=== PATIENT | female | born 1985 | race Hispanic/Latino ===

== ENCOUNTER 2019-05-31 01:42 | Emergency (ER) | payer SELFPAY ==
[2019-05-31 02:24] LABS: Bilirubin Negative (Negative); Blood, Urine 2+ (Negative); Clarity Clear (Clear); Glucose, Urine (Dipstick) Normal (Negative); Leukocyte Negative Leu/uL (Negative); Nitrite Negative (Negative); Protein, Urine (Dipstick) Negative (Neg-Trace); RBC/HPF 0-3 HPF (0-3); Squamous Epithelial 0-3 HPF (0-3); Urobilinogen Normal mg/dL (Less than 2); WBC/HPF 0-3 HPF (0-3)
[2019-05-31 02:25] LABS: Pregnancy Test - Urine (BHCG) Negative (Negative); Pregu Control Bar Appear? YES (CONTROL BAR); Specific Gravity 1.003 (1.002-1.036)
[2019-05-31 02:26] LABS: Pregu Control Background? CLEAR/WHITE (CLR/WHITE)
[2019-05-31 02:32] LABS: ALT (SGPT) 33 U/L (8-55); AST (SGOT) 31 U/L (5-34); Albumin 4.4 g/dL (3.5-5.0); Alkaline Phosphatase 65 U/L (40-150); Anion Gap 12 mmol/L (10-20); BUN (Urea Nitrogen) 9 mg/dL (7.0-18.7); Bilirubin, Total 0.5 mg/dL (0.2-1.2); Calc. Creatinine Clearance 0 mL/min (70-130); Calcium 9.5 mg/dL (7.8-10.44); Carbon Dioxide 23 mmol/L (22-29); Chloride 106 mmol/L (98-107); Estimated GFR-MDRD 77; Glucose 97 mg/dL (70-105); Lipase 62 U/L (8-78); Potassium 3.6 mmol/L (3.5-5.1); Protein, Total 7.4 g/dL (6.0-8.3); Sodium 137 mmol/L (136-145)
[2019-05-31 02:37] LABS: Bacteria/HPF 1+ HPF (None Seen)
[2019-05-31] MEDS ORDERED: Morphine 4 MG/ML VIAL ONE ×2 (02:38→04:18)
[2019-05-31] MEDS ORDERED: Ketorolac Tromethamine 30 MG/ML VIAL ONE (04:18)
[2019-05-31] MEDS ORDERED: cefTRIAXone\\ROCEPHIN 2 GM VIAL ONE (06:23)
--- NOTE | 2019-05-31 08:09 | CT ---
CT ABDOMEN AND PELVIS WITHOUT IV CONTRAST: Date: 05/31/19 INDICATION: Right-sided flank pain. FINDINGS: There is a 6 mm stone in the distal right ureter, approximately 2 cm from the level of the right UVJ, causing mild right hydronephrosis. There is a tiny, 1-2 mm, calculus within the inferior pole of the right kidney. There is mild fatty infiltration of the liver. The adrenal glands, pancreas, and spleen appear within normal limits. There are cystic abnormalities involving both adnexa. The rectum and perirectal soft tissues are unremarkable. No acute osseous abnormality is evident. IMPRESSION: 1. 6 mm stone within the distal right ureter causing mild right hydronephrosis. 2. Right nephrolithiasis. 3. Fatty liver. POS: BH
--- NOTE | 2019-05-31 08:19 | ULT ---
PRELIMINARY REPORT/[facility]/EMERGENCY AFTER HOURS PROCEDURE: EXAM: US Abdomen Limited, Right Upper Quadrant EXAM DATE/TIME: 05/31/2019 2:50 AM CLINICAL HISTORY: 34 years old, female; Pain; Other: RT flank TECHNIQUE: Imaging protocol: Real-time ultrasound of the abdomen with image documentation. Examination was focus ed on the right upper quadrant. COMPARISON: No relevant prior studies available. FINDINGS: Liver: Echogenic/fatty liver. No acute findings. No mass. Gallbladder: No gallstones. No significant gallbladder wall thickening or pericholecystic fluid. Negative Gutierres's sign. Possible tiny pericholecystic fluid. Common bile duct: Unremarkable. Pancreas: Limited visualization due to bowel gas. Right kidney: Mild hydronephrosis. No stones. No mass. Bilateral ureteral jets visualized. IMPRESSION: Mild right hydronephrosis. Possible tiny pericholecystic fluid. Echogenic/fatty liver. Thank you for allowing us to participate in the care of your patient. Dictated and Authenticated by: Joel Chow MD 05/31/2019 3:55 AM Central Time ([place] & [place]) FINAL REPORT EMERGENCY AFTER HOURS RIGHT UPPER QUADRANT ULTRASOUND: IMPRESSION: I agree with the preliminary report provided by Giovanni. 1. There is mild right hydronephrosis. 2. There is diffuse fatty infiltration of the liver. 3. Nonspecific small amount of fluid seen adjacent to the gallbladder. There is no sonographic Kayley y's sign reported. No intraluminal gallstones are noted. Remaining aspects of exam as above. POS: NICHOLAS
== END 2019-05-31 07:25 | disposition home or self-care (01) ==
LOC: ERS 01:42
DX: N13.2 Hydronephrosis with renal and ureteral calculous obstruction (principal); Z79.899 Other long term (current) drug therapy; Z79.84 Long term (current) use of oral hypoglycemic drugs
CPT/HCPCS: 36415; 74176; 76705; 80053; 81003; 81015; 81025; 83690; 96361; 96365; 96372; 96375; 96376; J0696; J1885; J2270

== ENCOUNTER 2020-01-25 10:13 | Emergency (ER) | payer SELFPAY ==
[2020-01-25 11:40] LABS: #Eosinphils 0.2 thou/uL (0.0-0.7); #Lymphocytes 2.2 thou/uL (1.20-3.40); #Monocytes 0.6 thou/uL (0.11-0.59); #Neutrophils 5.5 thou/uL (1.40-6.50); %Basophils 0.6 % (0.0-1.0); %Eosinophils 2.3 % (0.0-10.0); %Lymphocytes 25.5 % (21.0-51.0); %Monocytes 7.4 % (0.0-10.0); %Neutrophils 64.3 % (42.0-75.0); Hemoglobin 13.3 g/dL (12.0-16.0); Mean Corpuscular HGB CONC 33.2 g/dL (32.0-36.0); Mean Corpuscular Hemoglobin 30.1 pg (27.0-31.0); Mean Corpuscular Volume 90.7 fL (78.0-98.0); Mean Platelet Volume 7.7 fL (7.4-10.4); Platelet Count 243 thou/uL (130-400); RBC Distribution Width 12.7 % (11.5-14.5); Red Blood Cell (RBC) Count 4.43 mill/uL (4.20-5.40); White Blood Cell (WBC) Count 8.6 thou/uL (4.8-10.8)
--- NOTE | 2020-01-25 13:06 | ULT ---
US Pelvic Transvag History: Pain Comparison: None. Findings: Real-time grayscale, color, and spectral analysis of the pelvis was performed transabdomina l and transvaginal approach. There is an intrauterine gestational sac with mean sac diameter 0.99 cm, 5 week 5 day gestation. Ther e is a pole with crown rump length of 0.45 cm, 6 week 1 day gestation. Yolk sac measures 0.17 cm. heart rate documented at 10 1 bpm. Moderate adjacent subchorionic hemorrhage. Multiple cysts of the cervix. The ovaries are very large with numerous theca lutein cysts. Impression: 1. Viable intrauterine with average ultrasound age 6 weeks 0 day with estimated date of del jas September 19, 2020. 2. Given the relatively large adjacent subchorionic hemorrhage, close follow-up hCG and ultrasound is recommended. 3. Similar appearance of the enlarged bilateral ovaries with numerous theca lutein cysts. Differentia l is unchanged from the comparison examination.
== END 2020-01-25 13:42 | disposition home or self-care (01) ==
LOC: ERS 10:13
DX: O99.89 Other specified diseases and conditions complicating pregnancy, childbirth and the puerperium (principal); R10.30 Lower abdominal pain, unspecified; Z3A.01 Less than 8 weeks gestation of pregnancy
CPT/HCPCS: 36415; 76856; 84702; 85025

== ENCOUNTER 2020-05-14 10:18 | Inpatient (IN) | payer BC, SELFPAY ==
[~2020-05-14 10:18] MED LIST: Bupivacaine 0.25% HCL 30 ML VIAL ONE; Bupivacaine PF 0.5% 30 ML VIAL ONE
[2020-05-14 11:02] VITALS: BMI 30.7
[2020-05-14] MEDS ORDERED: Acetaminophen 500 MG TAB PO SCH (11:45)
--- NOTE | 2020-05-14 12:05 | PDOC.LDHP ---
Labor and Delivery H&P Chief complaint: abdominal pain, other (Vaginal bleeding) HPI: 35 yo @ 21.1 wks by LMP c/w 6wk bentley presents to L&D with complaint of abdominal pain and vaginal bleeding. Pt states that the abdominal pain started 3 days ago. Came on gradually, has been intermittent, feels sharp, and is getting more severe, especially today. States this morning she noticed bleeding when she wiped after peeing. About 30 minutes later noticed more vaginal bleeding that she related to like the start of her period. Denies any complications with her to this point. States her last US was last month and she was not informed of any abnormal findings. Denies any fever, chills, N/V/D/C, dysuria, LOF. Reports nml FM. Pt was dx COVID-19 positive on 04/26/20. She was asymptomatic on 05/03/20. Denies any continued symptoms similar to then. Current gestational age (weeks): 21 (1) Due date: 09/23/20 Dating criteria: last menstrual period, first trimester ultrasound Grav: 1 Para: 0 Current complications: none Abnormal US findings: Yes (Large subchorionic hem. on 6wk US. numerous thecal cysts, large ovaries) Current medications: pre-mary jo vitamins Previous surgical history: none Allergies/Adverse Reactions: Allergies Allergy/AdvReac Type Severity Reaction Status Date / Time No Known Allergies Allergy Verified 05/14/20 11:01 Social history: none - Physical Exam Vital signs reviewed and normal: yes General: other (tearful) Heart: RRR Lungs: nonlabored breathing Abdomen: other (diffuse tenderness to palpation, no guarding, rigidity) Extremeties: normal range of motion FHT: category 1 (Not able to obtain tracing due to GA. FHR 135) - Assessment L&D Assessment: labor 2nd Trimester Vaginal Bleeding Labor at Non-viable Gestational Age - Plan Plan: admit to L&D -: 2nd Trimester Vaginal Bleeding with Labor at Nonviable Gestational Age - CBC: -WBC 14.6 with mild left shift - CMP: -Mildly suppressed bicarb, likely related to mild hyperventilation from abdominal pain with compensation - UA: - No gross infection noted - US: -20 week, 5 day gestation by ultrasound. -Images of the cervix show open internal os with funneling seen into the internal os. -Type/screen: A+ -No rhogam indicated with bleeding - Elevated WBC without any other indications of active infection, will continue to monitor for changes in vitals and sx - Pt received 1L LR bolus and 1g Tylenol - Sterile Spec: Dilated cervix with protruding membranes - SVE: Difficult to fully assess due to membranes, dilation noted with complete effacement, -2 station. Balotable membranes - Discussed with pt her options of transfer to [place] vs inpt here for labor progression monitoring and pt wishes to remain here with expectant management - We offered to have NICU provider speak with pt regarding her babies poor prognosis to answer any questions she had but she deferred - Pt expressed understanding that if she were to deliver prior to 23 weeks there would be nothing we could do to resuscitate the baby Plan: Due to labor at non viable gestational age will plan for admit and monitor for labor progression. The patient was evaluated with my attending, Dr. Nina Ramirez. We discussed the above patient and treatment plan with which she agrees. Luis Armando Egan PGY2
[2020-05-14 12:11] LABS: #Eosinphils 0.1 thou/uL (0.0-0.7); #Lymphocytes 1.8 thou/uL (1.20-3.40); #Monocytes 0.8 thou/uL (0.11-0.59); #Neutrophils 11.9 thou/uL (1.40-6.50); %Basophils 0.2 % (0.0-1.0); %Eosinophils 0.4 % (0.0-10.0); %Lymphocytes 12.3 % (21.0-51.0); %Monocytes 5.5 % (0.0-10.0); %Neutrophils 81.7 % (42.0-75.0); Hemoglobin 13.8 g/dL (12.0-16.0); Mean Corpuscular HGB CONC 34.1 g/dL (32.0-36.0); Mean Corpuscular Hemoglobin 30.1 pg (27.0-31.0); Mean Corpuscular Volume 88.3 fL (78.0-98.0); Mean Platelet Volume 8.3 fL (7.4-10.4); Platelet Count 304 thou/uL (130-400); RBC Distribution Width 14.4 % (11.5-14.5); Red Blood Cell (RBC) Count 4.57 mill/uL (4.20-5.40); White Blood Cell (WBC) Count 14.6 thou/uL (4.8-10.8)
[2020-05-14] MEDS ORDERED: Lactated Ringer's 1,000 ML IV SCH (12:15)
[2020-05-14 12:23] LABS: Bacteria/HPF None Seen HPF (None Seen); Bilirubin Negative (Negative); Blood, Urine 2+ (Negative); Clarity Turbid (Clear); Glucose, Urine (Dipstick) Normal (Negative); Leukocyte Negative Leu/uL (Negative); Nitrite Negative (Negative); Protein, Urine (Dipstick) Negative (Neg-Trace); RBC/HPF Greater than 50 HPF (0-3); Urobilinogen Normal mg/dL (Less than 2)
[2020-05-14 12:35] LABS: ALT (SGPT) 22 U/L (8-55); AST (SGOT) 19 U/L (5-34); Albumin 3.7 g/dL (3.5-5.0); Alkaline Phosphatase 79 U/L (40-110); Anion Gap 13 mmol/L (10-20); BUN (Urea Nitrogen) 7 mg/dL (7.0-18.7); Bilirubin, Total 0.3 mg/dL (0.2-1.2); Calc. Creatinine Clearance 171 mL/min (70-130); Calcium 9.2 mg/dL (7.8-10.44); Carbon Dioxide 18 mmol/L (22-29); Chloride 110 mmol/L (98-107); Estimated GFR-MDRD Greater than 90; Globulin 3.4 g/dL (2.4-3.5); Glucose 89 mg/dL (70-105); Potassium 3.7 mmol/L (3.5-5.1); Protein, Total 7.1 g/dL (6.0-8.3); Sodium 137 mmol/L (136-145)
[2020-05-14] MEDS ORDERED: Misoprostol 200 MCG TAB PR PRN (12:48)
[2020-05-14] MEDS ORDERED: Ibuprofen 800 MG TAB PO PRN (12:48)
[2020-05-14] MEDS ORDERED: hydrALAZINE 20 MG/ML VIAL SLOW IVP PRN (12:48)
[2020-05-14] MEDS ORDERED: Lidocaine 1% (PF) 30 ML VIAL SC PRN (12:48)
[2020-05-14] MEDS ORDERED: Acetaminophen 500 MG TAB PO PRN (12:48)
[2020-05-14] MEDS ORDERED: NS / Oxytocin 40 units/1000ml 1,000 ML IV PRN (12:48)
[2020-05-14] MEDS ORDERED: Promethazine HCl 25 MG/ML VIAL IM PRN (12:48)
[2020-05-14] MEDS ORDERED: Ondansetron PF 4 MG/2 ML Vial IVP PRN (12:48)
[2020-05-14] MEDS ORDERED: Methylergonovine 0.2 MG/ML VIAL IM PRN (12:48)
[2020-05-14] MEDS ORDERED: Carboprost 250 MCG/ML AMP IM PRN (12:48)
[2020-05-14] MEDS: Butorphanol Tartrate 1 MG/ML VIAL SLOW IVP PRN ×4 (13:31→21:07)
--- NOTE | 2020-05-14 13:34 | ULT ---
PELVIC ULTRASOUND: 05/14/20 Transabdominal ultrasound of the pelvis performed. INDICATIONS: Vaginal bleeding, second trimester. There is a viable intrauterine . Gestational age by ultrasound is 20 weeks, 5 days. Biometry measurements are consistent. heart rate: 145 beats per minute. Placenta: Anterior. Presentation: Transverse. Amniotic fluid: Adequate. QUINN recorded at 13 cm. Images of the cervix show funneling of the internal os. The internal os appears open. anatomy imaged include intracranial contents, four chamber heart, stomach, kidneys, cord insert ion, bladder, spine, extremities and three vessel cord. No abnormality identified. IMPRESSION: 1. 20 week, 5 day gestation by ultrasound. 2. Images of the cervix show open internal os with funneling seen into the internal os. POS: AGW
[2020-05-14] MEDS: Lactated Ringer's 1,000 ML IV SCH ×2 (18:00→21:00)
[2020-05-14] MEDS ORDERED: HYDROcodone/Acetaminophen 7.5/325 mg Tablet PO SCH (21:30)
[2020-05-15] MEDS: Morphine 4 MG/ML VIAL SLOW IVP PRN ×4 (00:27→09:59)
[2020-05-15] MEDS ORDERED: Cyclobenzaprine 10 MG TAB PO SCH (00:30)
[2020-05-15] MEDS: Lactated Ringer's 1,000 ML IV SCH ×4 (04:28→23:59)
--- NOTE | 2020-05-15 07:13 | PDOC.LDPN ---
Labor & Delivery Progress Note - Subjective Subjective: other (Having back, bladder, and uterine pain per pt. Pain rx has had mild-moderate benefit. Denies any loss of fluid. Is having some mild vaginal bleeding. Denies fever, chills, N/V.) - Objective Vital signs reviewed and normal: yes General: resting Uterine fundus: tender to palpation (diffusely, uterus not tetonic) SVE: Deferred due to labor with protruding membranes Plan: continue plan of care -: Labor at Non-viable Gestational Age - Pt complains of continued back pain and bladder distention - noting difficulty with urinating - will placed cummings to decompress as pt currently strict bed rest - pt does have history of nephrolithiasis and states that her back pain feels similar to pain she experienced with this in the past - if bladder decompression does not relieve her pain may need to consider US to identify stone/hydronephrosis - unfortunately in her current situation this is likely little intervention that could be offered - will continue to attempt to control her pain with as minimal opioids as necessary - Cervical dilation and protruding membranes without notable loss of fluid at this point - Deferring any digital cervical exams due to exposed membranes - Pt would benefit from r/o any intra-vaginal infections that could be contributing - Sterile spec to visualize cervical dilation and GC/CT, VP3 today would be advisable Luis Armando Egan PGY2
[2020-05-15 07:34] LABS: #Lymphocytes 2.5 thou/uL (1.20-3.40); #Neutrophils 11.1 thou/uL (1.40-6.50); %Basophils 0.3 % (0.0-1.0); %Eosinophils 0.2 % (0.0-10.0); %Monocytes 6.8 % (0.0-10.0); %Neutrophils 75.8 % (42.0-75.0); Hemoglobin 12.8 g/dL (12.0-16.0); Mean Corpuscular HGB CONC 33.5 g/dL (32.0-36.0); Mean Corpuscular Hemoglobin 30.1 pg (27.0-31.0); Mean Corpuscular Volume 89.8 fL (78.0-98.0); Mean Platelet Volume 8.2 fL (7.4-10.4); Platelet Count 255 thou/uL (130-400); RBC Distribution Width 14.2 % (11.5-14.5); Red Blood Cell (RBC) Count 4.27 mill/uL (4.20-5.40); White Blood Cell (WBC) Count 14.7 thou/uL (4.8-10.8)
[2020-05-15 07:45] LABS: ALT (SGPT) 20 U/L (8-55); AST (SGOT) 20 U/L (5-34); Albumin 3.3 g/dL (3.5-5.0); Alkaline Phosphatase 75 U/L (40-110); Anion Gap 14 mmol/L (10-20); BUN (Urea Nitrogen) 6 mg/dL (7.0-18.7); Bilirubin, Total 0.5 mg/dL (0.2-1.2); Calc. Creatinine Clearance 186 mL/min (70-130); Calcium 9.1 mg/dL (7.8-10.44); Carbon Dioxide 18 mmol/L (22-29); Chloride 107 mmol/L (98-107); Estimated GFR-MDRD Greater than 90; Globulin 3.2 g/dL (2.4-3.5); Glucose 79 mg/dL (70-105); Potassium 3.6 mmol/L (3.5-5.1); Protein, Total 6.5 g/dL (6.0-8.3); Sodium 135 mmol/L (136-145)
[2020-05-15] MEDS ORDERED: Fentanyl 4 mcg/Bup 0.1% Cadd 100 ML ONE ×2 (11:03→22:05)
[2020-05-15] MEDS ORDERED: Morphine 4 MG/ML VIAL SLOW IVP SCH (11:15)
[2020-05-15] MEDS ORDERED: EPHEDRINE 25 MG/5 ML SYRINGE SLOW IVP PRN (12:24)
[2020-05-15] MEDS ORDERED: Acetaminophen 325 MG TAB PO PRN (12:24)
[2020-05-15] MEDS ORDERED: Ondansetron PF 4 MG/2 ML Vial IVP PRN (12:24)
[2020-05-15] MEDS ORDERED: Naloxone HCl 0.4 mg/ml Vial IVP PRN ×2 (12:24)
[2020-05-15] MEDS ORDERED: Lactated Ringer's 500 ML IV PRN (12:24)
[2020-05-15] MEDS ORDERED: Promethazine HCl 25 MG/ML VIAL IM PRN (12:24)
[2020-05-15] MEDS ORDERED: Communication Order-Pharmacy FS SCH (12:30)
[2020-05-15] MEDS: diphenhydrAMINE 50 MG/ML VIAL IVP PRN (13:00)
--- NOTE | 2020-05-15 17:41 | PDOC.EVN ---
Event Note - Event Note Event Note: PT is a 35yo with an iup 21.2 days presenting with hourglassing membranes > 24hrs ago. There was some initial concern that she may be going into labor. however pt does not appear to have made any progress toward delivery. On ultrasound there is a foot passing through the cervix. On digital exam there is palpable cervix but difficult to feel the dilation due to the protruding bag. The patient on my exam when i came on duty today did not suggest labor. we dont see ctx on the monitor, the patient describes pain in her lower back that she says is reproducible with palapating knotted tissue parasacrally. When foot was palpated in the cervical os as the patient complaining of contractions the decision was made to offer an epidural to allow the pt to get some relief. 7hrs later we still have made no progress toward a labor picture. Transfer was offered to evaluate for possible cerclage vs staying and expectantly managing. . Pt accepted that option. A Dr Zane Johnson was called, an MFM with [facility], who has accepted her to evaluate for a possible cerclage placement. I have updated the patient and explained that there is not guarantee that this will be successful but that after an appropriate evaluation a cerclage will be performed if believed to be a viable option. PT has accepted these terms. Pt will go by ground tonight with plans for eval and possible cerclage in the morning. vitals 116/61 100 18 98.4 nad pt in [facility] fetus in [place] breech presentation with anterior placenta this afternoon.
[2020-05-15] MEDS: Fentanyl 4 mcg/Bupivacaine 0.1% Cassette 100 ML EPIDURAL SCH (23:56)
[2020-05-16] MEDS ORDERED: Fentanyl 4 mcg/Bup 0.1% Cadd 100 ML ONE ×3 (06:41→21:37)
[2020-05-16] MEDS: Lactated Ringer's 1,000 ML IV SCH ×2 (07:55→16:31)
--- NOTE | 2020-05-16 08:35 | PDOC.EVN ---
Event Note - Event Note Event Note: transfer driver care offered and accepted.
--- NOTE | 2020-05-16 09:01 | PRG ---
DATE OF SERVICE: 05/16/2020 SUBJECTIVE: The patient is a 35-year-old female, G1, P0 female with an intrauterine at 21 weeks and 2 days, now on hospital day 3. Attempts were made yesterday for the patient to be transferred to [place] for possible cerclage placement; however, patient was showing signs of labor, complaining of uterine contractions and vaginal bleeding. The transfer was halted. This morning on evaluation, patient remains now. Baby has two legs passing into the vaginal canal to the level of the hips with the buttocks at the level of the cervix. Family is requesting attempts for transfer to [place] now. We have explained given the gestational age of the baby at 21 weeks and 2 days. The transfer, at this point with these findings, would be quite difficult to obtain, but we will attempt to make contact with [place]. The patient is comfortable with an epidural. OBJECTIVE: VITAL SIGNS: This morning, blood pressure 111/61, heart rate of 100, respiratory rate of 16, temperature 98.6. GENERAL: She appears to be in no acute distress. She is otherwise alert, oriented, cooperative, and pleasant to interact with. MUSCULOSKELETAL: On cervical exam this morning, there is no palpable cervix anymore. The back feels more taut and on bedside ultrasound. Again, both legs are now kicking in the vaginal canal inside that hourglass membranes, but at the level of the cervix. ASSESSMENT AND PLAN: The patient is a 35-year-old G1, P0 female with an intrauterine at 21 weeks and 3 days with cervical incompetence and questionable labor progress. At this point, delivery is inevitable and anticipate that delivery later today at some point. The patient is comfortable and of note patient was diagnosed with Coronavirus on April 23, which may or may not have any bearing on today's findings, time will tell. Dr. Em, the oncoming physician and will be taking over management. Dr. Wakefield is the primary physician, who has deferred care to our decision making. Job ID: [id number]
--- NOTE | 2020-05-16 09:39 | PDOC.EVN ---
Event Note - Event Note Event Note: Received report from Dr. Finn this AM; 35 yo LAF G1 at 21 2/7 weeks with incompetent cevix now with BBOW and legs in bag per his exam this AM. has requested transfer to [place] this AM. Spoke with Dr. Cristina at [facility] just now. Transfer denied 2* to risk of delivery in route. I explained this to pt and via an hvac sales engineer, all questions answered. Plan: Cont. expectant management here. Pastoral Care has seen pt. per her request.
[2020-05-16] MEDS: diphenhydrAMINE 50 MG/ML VIAL IVP PRN (14:51)
[2020-05-16] MEDS: Fentanyl 4 mcg/Bupivacaine 0.1% Cassette 100 ML EPIDURAL SCH ×2 (14:52→21:44)
[2020-05-17] MEDS: Lactated Ringer's 1,000 ML IV SCH ×2 (00:22→10:16)
[2020-05-17] MEDS: Fentanyl 4 mcg/Bupivacaine 0.1% Cassette 100 ML EPIDURAL SCH (02:53)
--- NOTE | 2020-05-17 07:36 | PDOC.EVN ---
Event Note - Event Note Event Note: 21 3/7 weeks Just vomitted. SROM just now, clear fluid seen. VSS AF SVE= fetus palpated in vagina Anticipate immanent delivery.
[2020-05-17] MEDS ORDERED: Methylergonovine 0.2 MG/ML VIAL ONE (09:44)
[2020-05-17] MEDS ORDERED: Fentanyl 4 mcg/Bup 0.1% Cadd 100 ML ONE (10:02)
[2020-05-17] MEDS: Ibuprofen 800 MG TAB PO SCH (12:14)
[2020-05-18] MEDS: Ibuprofen 800 MG TAB PO SCH (00:05)
[2020-05-18] MEDS ORDERED: Ibuprofen 600 MG TAB PO PRN (07:39)
--- NOTE | 2020-05-18 07:46 | OP ---
DATE OF PROCEDURE: 05/17/2020 DELIVERY NOTE: The patient is a 35-year-old female, who delivered a nonviable female at 21 weeks and 4 days by a vaginal delivery on 05/17/2020 at 8:31 a.m. Weight was 380 g, Apgars were 3, 2, and 2. At time of delivery, infant was wrapped living and handed to mom for comfort and bonding. Placenta delivered about 2 hours later with the aid of 800 mcg of Cytotec, also spontaneously. There were no lacerations. Quantitative blood loss about 215 mL from time of delivery of the baby to delivery of the placenta. There were no lacerations. Dr. Finn is the delivering physician. Mother was stable in the room in the immediate . Infant about 1 hour later at 9:22. Prior to passing away at parent's request, table games supervisor was present. Job ID: [id number]
--- NOTE | 2020-05-18 09:46 | DIS ---
DATE OF ADMISSION: 05/14/2020 DATE OF DISCHARGE: 05/18/2020 ADMITTING DIAGNOSES: Back pain, intrauterine at 21 weeks, and bulging membranes. DISCHARGE DIAGNOSES: Back pain, intrauterine at 21 weeks, and bulging membranes with previable delivery and possible cervical incompetence. HOSPITAL COURSE: The patient is a 35-year-old, G1, now P1 female, who presented to Labor and Delivery at 21 weeks and 2 days with pain and bulging membranes. Attempts were made to transfer the patient out for evaluation of possible cerclage; however, the patient continued to have signs and symptoms of onset of labor with abdominal cramping and some vaginal bleeding and discharge was abandoned. The patient ultimately delivered a previable female . For complete details, please refer to the delivery note. This process occurred over two days, during much of which the patient had an epidural. Over the course of yesterday, the patient was noted to have urinary retention, retaining up to 600 mL of urine. Over the course of the evening, this seemed to improve, as by midnight, the patient was voiding 600 mL spontaneously. The patient has voided several times through the night. She has been asked this morning that next time she voids to notify the nursing staff so they can scan her bladder and see what is left. The patient reports her bleeding has slowed down. Her pain has improved. She was ambulating and tolerating a diet. Vital signs this morning while sleeping; blood pressure is 85/52, heart rate of 73, respiratory rate of 18, and temperature 98.0. Her evening blood pressure prior to sleeping was 113/66, heart rate of 83, and respiratory rate of 18. In general, she appears to be in no acute distress. She is alert and oriented, cooperative, and pleasant to interact with. Head is normocephalic and atraumatic. Abdomen is soft and nontender. Extremities are nontender and nonedematous. The patient is being discharged to home. She has instructions to follow up with Dr. Wakefield, her primary OB in 1 week for followup. She has been given instructions should she experience fever, increasing pain, or bleeding to contact medical provider. She will be going home with ibuprofen and Tylenol. Job ID: [id number]
== END 2020-05-18 09:25 | disposition home or self-care (01) | DRG 807 ==
LOC: L&D/OP 10:18 → L&D-LIB 13:24
PROVIDERS: ADMIT Obstetrics & Gynecology; ATTEND Obstetrics & Gynecology
PROC: 10E0XZZ Delivery of Products of Conception, External Approach (ICD-10-PCS; principal; 2020-05-17)
DX: O34.32 Maternal care for cervical incompetence, second trimester (principal); Z37.0 Single live birth; Z3A.21 21 weeks gestation of pregnancy
CPT/HCPCS: 36415; 51702; 76805; 76815; 80053; 81001; 85025; 86850; 86900; 86901; 99285; J0595; J1200; J2210; J2270; J2405; S0020

== ENCOUNTER 2024-05-12 14:02 | Outpatient (CLI) | payer BC ==
[~2024-05-12 14:02] MED LIST changes: -Bupivacaine 0.25% HCL 30 ML VIAL ONE; -Bupivacaine PF 0.5% 30 ML VIAL ONE; +Magnevist 469MG/ML 20 ML VIAL ONE
== END 2024-05-12 14:03 | disposition home or self-care (01) ==
LOC: BICMRI 14:02
PROVIDERS: ATTEND Nurse Practitioner Family
DX: N83.9 Noninflammatory disorder of ovary, fallopian tube and broad ligament, unspecified (principal); N83.202 Unspecified ovarian cyst, left side; N83.201 Unspecified ovarian cyst, right side; M48.07 Spinal stenosis, lumbosacral region; M51.37 Other intervertebral disc degeneration, lumbosacral region
CPT/HCPCS: 72197; A9579